=== PATIENT | female | born 1970 | race Caucasian/White ===

== ENCOUNTER 2019-11-18 11:38 | Emergency (ER) | payer BC ==
[2019-11-18] MEDS ORDERED: ALUM & MAG HYDROX-SIMETHICONE 30 ML, LIDOCAINE VISCOUS 2% 15 ML PO ONE ×2 (13:02)
[2019-11-18] MEDS ORDERED: MORPHINE SULFATE INJ 10 MG/ML VIAL IV ONE (13:02)
[2019-11-18] MEDS ORDERED: DICYCLOMINE HCL INJ 20 MG/2 ML AMP IM ONE (13:02)
[2019-11-18] MEDS ORDERED: ONDANSETRON INJ 4 MG/2 ML VIAL IV ONE (13:03)
--- NOTE | 2019-11-18 13:05 | ED.PDOC ---
History of Present Illness - General Chief Complaint: Abdominal Pain Time Seen by Provider: 11/18/19 12:54 Information Source: patient Exam Limitations: no limitations - History of Present Illness Initial Comments: 49 F +pmh presents to ED c/o acute exacerbation of chronic pancreatitis with RUQ and epigastric abd pain. She endorses radiation of pain posteriorly into her back and right back behind RUQ with intermittent nausea without vomiting. Pt has decreased PO intake and isn't tolerating a clear liquid diet at this time. She is scheduled for establishing visit with GI specialist on 11/25/2019. + h/o similar sx's. She currently denies f/c, vomiting, diarrhea/constipation, CP, SOB. Pt is otherwise without further complaints. Review of Systems - Review of Systems Constitutional: Denies: chills, fever EENTM: Denies: nose congestion, throat pain Respiratory: Denies: cough, short of breath Cardiology: Denies: chest pain, palpitations Gastrointestinal/Abdominal: States: abdominal pain, nausea, vomiting. Denies: constipation, diarrhea Genitourinary: Denies: dysuria, frequency, hematuria Musculoskeletal: States: back pain. Denies: muscle pain, neck pain Skin: Denies: change in color, rash Neurological: Denies: headache, paresthesia Endocrine: Denies: unexplained weight loss Family Medical History - Family History Mother Family History: No Known Physical Exam - Physical Exam General Appearance: Alert, Obvious distress, Well Nourished, Other - not ill appearing Eyes, Ears, Nose, Throat Exam: PERRL/EOMI, other - no scleral icterus Neck: full range of motion, supple Respiratory: lungs clear, normal breath sounds, no respiratory distress, no accessory muscle use Cardiovascular/Chest: regular rate, rhythm, no edema, no gallop, no JVD, no murmur Gastrointestinal/Abdominal: soft, no pulsatile mass, other - epigastric and RUQ TTP, questionable Prince sign, negative mcburney, no peritoneal signs, no rebound/guarding Back Exam: no CVA tenderness Extremity: normal inspection, no pedal edema Neurologic: no motor/sensory deficits, alert, normal mood/affect, oriented x 3 Skin Exam: normal color, warm/dry, other - no rash Progress - Progress Progress: Presents with likely acute exacerbation of chronic pancreatitis. Low clinical concern for biliary colic, cholecystitis, SBO, peritonitits, pyelonephritis/UTI. I will check labs, imaging, provide appropriate pharmacotherapy, and continue to monitor/reassess. Disposition will depend on findings and pt's clinical course in ED; however, discharge home with f/u, education, and prescriptions is expected. Rechecked pt at time of discharge. Pain and nausea are resolved and she is feeling much better. NAD. VSS. I have discussed diagnosis, clinical findings, and all results of testing in ED. ED return precautions given. I have discussed discharge home with f/u, education, and prescriptions. Pt voices understanding, agrees with plan, and all questions answered. - Results/Orders Results/Orders: Laboratory Tests 11/18/19 11/18/19 11/18/19 12:18 12:45 12:45 WBC 4.8 RBC 4.45 Hgb 13.2 Hct 40.3 MCV 90.6 MCH 29.6 MCHC 32.7 L RDW 13.4 Plt Count 232 MPV 8.8 Absolute Neuts (auto) 2.90 Absolute Lymphs (auto) 1.50 Absolute Monos (auto) 0.30 Absolute Eos (auto) 0.00 Absolute Basos (auto) 0.00 Neutrophils % 61.0 Lymphocytes % 30.5 Monocytes % 6.7 Eosinophils % 1.0 Basophils % 0.8 Sodium 139 Potassium 3.7 Chloride 103 Carbon Dioxide 27 Anion Gap 12.7 BUN 15 Creatinine 0.75 BUN/Creatinine Ratio 20.0 Random Glucose 89 Serum Osmolality 277.8 Calcium 9.0 Total Bilirubin 0.7 AST 16 ALT 13 Alkaline Phosphatase 78 Serum Total Protein 6.8 Albumin 3.9 Globulin 2.9 Albumin/Globulin Ratio 1.3 Lipase 68 H Urine Color Yellow Urine Appearance Clear Urine pH 7.0 Ur Specific [place] 1.015 Urine Protein Negative Urine Glucose (UA) Negative Urine Ketones Negative Urine Blood Negative Urine Nitrite Negative Urine Bilirubin Negative Urine Urobilinogen 0.2 Ur Leukocyte Esterase Negative Urine RBC 0-1 Urine WBC 0-1 Ur Epithelial Cells 0-1 Urine Bacteria Rare EXAM DESCRIPTION: Gall Bladder: ULTRASOUND. CLINICAL HISTORY: abd pain COMPARISON: CT abdomen June 2019. TECHNIQUE: Transabdominal scanning: Davis- scale and Doppler modes. FINDINGS: Gallbladder: normal size, shape, echogenicity; no intraluminal stones or sludge. No fluid around the gallbladder. No wall thickening. 2.4 mm. Non-tender with transducer pressure. Common bile duct: caliber 4.6 mm within normal limits. Liver: normal echogenicity; contour liver capsule smooth where seen. No fluid around the liver. Intrahepatic biliary ducts normal caliber. Doppler hepatopedal flow portal vein.. Long axis right lobe 16.7 cm. Pancreas: normal size Normal echogenicity. Duct not seen. Aorta: 2.3 cm normal proximal diameter. Right kidney: 9.0 cm long axis. Normal cortical thickness and echogenicity. Minimal hydronephrosis.. IMPRESSION: Minimal hydronephrosis in the right kidney. Other abdominal organs are negative. Stomach was not imaged. Electronically signed by: Hermes Willis MD 11/18/2019 1:53 PM [employer] EXAM DESCRIPTION: CT ABDOMEN AND PELVIS WITH CONTRAST CLINICAL HISTORY: abd pain COMPARISON: None Available. TECHNIQUE: CT of the abdomen and pelvis are performed during IV bolus administration of 100 mL of Isovue 300. Oral contrast media was not administered. This exam was performed according to our departmental dose-optimization program, which includes automated exposure control, adjustment of the mA and/or kV according to patient size and/or use of iterative reconstruction technique. FINDINGS: The lung bases are clear without infiltrate or effusion or mass or hiatal hernia. The unenhanced liver is normal in appearance. No cystic or solid mass is noted and the gallbladder normally distended without wall thickening or visible stones or ductal dilation. A small normal spleen is present. The pancreas normally enhances without cyst or mass. Small normal adrenal glands are noted. The kidneys cortically enhance without hydronephrosis or stone disease or cyst or mass or perinephric fluid collection. The aorta and vena cava and retroperitoneum show no significant adenopathy. Large and small bowel caliber is normal. The ileocecal valve cecum and posteriorly positioned appendix extending into the posterior pelvis is normal in appearance. Ileus or obstruction of the small bowel is not apparent. Mild to modest left colonic and sigmoid colonic diverticulosis is present with prominent diverticulum extending into the lateral lower left pelvis but without acute inflammation. The bladder is normally distended and the uterus anteverted and tilted to the right of midline. The right ovary and adnexa is unremarkable and the left ovary and is not well demonstrated. No abdominal or pelvic ascites or cul-de-sac fluid to suggest acute inflammation is noted. Bony spine is normally aligned with bridging anterior spurs in the lower dorsal spine without vertebral collapse or destructive process. Mesenteric vessels are unremarkable. No abnormality in the inguinal regions noted. The anterior abdominal wall appears intact. IMPRESSION: 1. Essentially negative CT examination of the abdomen and pelvis with contrast enhancement. 2. Left colonic diverticulosis without acute inflammation. Small normal appendix in the lower posterior right pelvis is noted. 3. Small bowel or colonic obstruction or acute inflammation is not apparent. Very mildly dilated proximal jejunal loops are nonspecific. Electronically signed by: Marcus Franklin MD 11/18/2019 2:11 PM [facility] Departure - Departure Clinical Impression: Abdominal pain Qualifiers: Abdominal location: epigastric Qualified Code(s): R10.13 - Epigastric pain Chronic pancreatitis Qualifiers: Pancreatitis type: other Qualified Code(s): K86.1 - Other chronic pancreatitis Time of Disposition: 14:22 Disposition: Discharge to Home or Self Care Condition: Fair Departure Forms: ED Discharge - Pt. Copy, Patient Portal Self Enrollment Instructions: DI for Abdominal Pain-Adult, Pancreatitis (DC) Diet: bland diet, low fat, low cholesterol Referrals: Your, GI Specialist [Other] - 1-2 Weeks (Keep already scheduled appointment with your GI Specialist at [facility] on 11/25/2019 as discussed at bedside.) Prescriptions: Acetaminophen W/ Codeine [Tylenol W/ CODEINE #3] 1 ea PO Q8H PRN #12 PRN Reason: Abdominal Distress Dicyclomine HCl [Bentyl] 20 mg PO Q8H PRN #30 tab PRN Reason: Abdominal Distress RX: Famotidine 40 mg PO BID PRN #30 tab PRN Reason: Abdominal Distress Ondansetron Tab [Zofran Tab] 4 mg PO QID PRN #12 tab PRN Reason: Nausea/Vomiting Home Medications: Ambulatory Orders Acetaminophen W/ Codeine [Tylenol W/ CODEINE #3] 1 ea PO Q8H PRN #12 11/18/19 Dicyclomine HCl [Bentyl] 20 mg PO Q8H PRN #30 tab 11/18/19 Famotidine 40 mg PO BID PRN #30 tab 11/18/19 Ondansetron Tab [Zofran Tab] 4 mg PO QID PRN #12 tab 11/18/19
[2019-11-18] MEDS ORDERED: LIDOCAINE HCL 2% (MOUTH-THROAT) 15 ML UD ONE (13:52)
[2019-11-18] MEDS ORDERED: ALUM & MAG HYDROX-SIMETHICONE 30 ML UD ONE (13:53)
--- NOTE | 2019-11-18 13:54 | US ---
EXAM DESCRIPTION: Gall Bladder: ULTRASOUND. CLINICAL HISTORY: abd pain COMPARISON: CT abdomen June 2019. TECHNIQUE: Transabdominal scanning: Davis-scale and Doppler modes. FINDINGS: Gallbladder: normal size, shape, echogenicity; no intraluminal stones or sludge. No fluid around the gallbladder. No wall thickening. 2.4 mm. Non-tender with transducer pressure. Common bile duct: caliber 4.6 mm within normal limits. Liver: normal echogenicity; contour liver capsule smooth where seen. No fluid around the liver. Intrahepatic biliary ducts normal caliber. Doppler hepatopedal flow portal vein.. Long axis right lobe 16.7 cm. Pancreas: normal size Normal echogenicity. Duct not seen. Aorta: 2.3 cm normal proximal diameter. Right kidney: 9.0 cm long axis. Normal cortical thickness and echogenicity. Minimal hydronephrosis.. IMPRESSION: Minimal hydronephrosis in the right kidney. Other abdominal organs are negative. Stomach was not imaged. Electronically signed by: Hermes Willis MD 11/18/2019 1:53 PM [facility]
--- NOTE | 2019-11-18 14:12 | CT ---
EXAM DESCRIPTION: CT ABDOMEN AND PELVIS WITH CONTRAST CLINICAL HISTORY: abd pain COMPARISON: None Available. TECHNIQUE: CT of the abdomen and pelvis are performed during IV bolus administration of 100 mL of Isovue 300. Oral contrast media was not administered. This exam was performed according to our departmental dose-optimization program, which includes automated exposure control, adjustment of the mA and/or kV according to patient size and/or use of iterative reconstruction technique. FINDINGS: The lung bases are clear without infiltrate or effusion or mass or hiatal hernia. The unenhanced liver is normal in appearance. No cystic or solid mass is noted and the gallbladder normally distended without wall thickening or visible stones or ductal dilation. A small normal spleen is present. The pancreas normally enhances without cyst or mass. Small normal adrenal glands are noted. The kidneys cortically enhance without hydronephrosis or stone disease or cyst or mass or perinephric fluid collection. The aorta and vena cava and retroperitoneum show no significant adenopathy. Large and small bowel caliber is normal. The ileocecal valve cecum and posteriorly positioned appendix extending into the posterior pelvis is normal in appearance. Ileus or obstruction of the small bowel is not apparent. Mild to modest left colonic and sigmoid colonic diverticulosis is present with prominent diverticulum extending into the lateral lower left pelvis but without acute inflammation. The bladder is normally distended and the uterus anteverted and tilted to the right of midline. The right ovary and adnexa is unremarkable and the left ovary and is not well demonstrated. No abdominal or pelvic ascites or cul-de-sac fluid to suggest acute inflammation is noted. Bony spine is normally aligned with bridging anterior spurs in the lower dorsal spine without vertebral collapse or destructive process. Mesenteric vessels are unremarkable. No abnormality in the inguinal regions noted. The anterior abdominal wall appears intact. IMPRESSION: 1. Essentially negative CT examination of the abdomen and pelvis with contrast enhancement. 2. Left colonic diverticulosis without acute inflammation. Small normal appendix in the lower posterior right pelvis is noted. 3. Small bowel or colonic obstruction or acute inflammation is not apparent. Very mildly dilated proximal jejunal loops are nonspecific. Electronically signed by: Marcus Franklin MD 11/18/2019 2:11 PM [employer]
[2019-11-18 14:49] VITALS: BP 129/93; TEMP 96.7; O2SAT 97
== END 2019-11-18 14:48 | disposition home or self-care (01) ==
LOC: ER 11:38
DX: K86.1 Other chronic pancreatitis (principal)
CPT/HCPCS: 74177; 76705; 80053; 81001; 83690; 85025; J0500; J2270; J2405